=== PATIENT | male | born 1980 | race Caucasian/White ===

== ENCOUNTER 2023-05-10 07:22 | Emergency (ER) | payer MEDICAID, SELFPAY ==
[2023-05-10 07:24] VITALS: BP 138/90; PULSE 104; RESP 21; TEMP 36.6; O2SAT 86; BMI 28.3
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
--- NOTE | 2023-05-10 07:36 | NURSING ---
NO OLD EKGS
--- NOTE | 2023-05-10 07:37 | NURSING ---
CALLED [facility] FOR
--- NOTE | 2023-05-10 07:37 | NURSING ---
PATIENT GOING TO [facility] ACCEPTING
--- NOTE | 2023-05-10 07:41 | ED.RN ---
Patient has insulin pump. EMS blood sugar 200.
[2023-05-10 07:42] VITALS: BP 138/90; PULSE 95; RESP 22
--- NOTE | 2023-05-10 07:44 | ED.RN ---
Patient to CT. [facility] en route for transfer.
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
--- NOTE | 2023-05-10 07:44 | NURSING ---
0742 [facility] ETA IS 10 MIN
[2023-05-10 07:46] LABS: Absolute Lymphocyte Count 0.89 X10^3/uL (0.83-4.51); Absolute Neutrophil Count 14.3 X10^3/uL (2.0-7.7); Basophil# 0.05 X10^3/uL; Basophil% 0.3 % (0-1); Eosinophil# 0.01 X10^3/uL; Eosinophils% 0.1 % (0-5); Hemoglobin 14.6 g/dL (13.0-16.5); Lymphocyte # 0.89 X10^3/ul (0.83-4.51); Lymphocyte % 5.4 % (19-41); Mean Corp Hgb Conc 33.2 g/dL (32-36); Mean Corpuscular Hgb 28.7 pg (27.0-32.0); Mean Corpuscular Volume 86.6 fL (80-94); Mean Platelet Vol. 9.8 fl (6.2-12.0); Monocyte# 1.05 X10^3/uL; Monocyte% 6.4 % (0-10); NRBC Flagged by Analyzer 0 % (0-5); Neutrophil # 14.33 X10^3/uL (2.7-7.7); Neutrophil % 87.3 % (47-70); Platelet Count 275 K/mm3 (150-450); RBC Distribution Width CV 13.2 % (11.6-14.6); RBC Distribution Width SD 41.3 fl (35.1-43.9); Red Blood Count 5.08 M/mm3 (4.6-6.2); White Blood Count 16.4 K/mm3 (4.4-11.0)
[2023-05-10 08:00] LABS: Anion Gap 4 (5-15); BUN 14 mg/dL (7-18); BUN/Creat Ratio 13.2 RATIO (10-20); Calcium,Total 8.2 mg/dL (8.5-10.1); Chloride 110 mmol/L (98-107); Creatinine, Serum 1.06 mg/dL (0.70-1.30); EST Glomerular Filtration Rate 81 mL/min (>60); Est Glom Filt Rate - Afr Amer 98 mL/min (>60); Estimated Creatinine Clearance 99.64 ml/min; Glucose 293 mg/dL (74-106); International Normalized Ratio 1.1; Potassium 3.8 mmol/L (3.5-5.1); Prothrombin Time (Protime)PT. 13.8 SECONDS (11.7-14.9); Sodium Level 140 mmol/L (136-145)
[2023-05-10 08:01] VITALS: BP 142/74; PULSE 104; RESP 21; O2SAT 98
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
== END 2023-05-10 08:13 | disposition short-term general hospital (02) ==
LOC: ED 07:55
PROVIDERS: Emergency Provider Student in an Organized Health Care Education/Training Program; Visit Provider Student in an Organized Health Care Education/Training Program
DX: S12.200A Unspecified displaced fracture of third cervical vertebra, initial encounter for closed fracture (principal); F10.129 Alcohol abuse with intoxication, unspecified; E10.9 Type 1 diabetes mellitus without complications; V89.2XXA Person injured in unspecified motor-vehicle accident, traffic, initial encounter; S59.902A Unspecified injury of left elbow, initial encounter; D72.829 Elevated white blood cell count, unspecified; S01.112A Laceration without foreign body of left eyelid and periocular area, initial encounter; M21.922 Unspecified acquired deformity of left upper arm; Y90.8 Blood alcohol level of 240 mg/100 ml or more
CPT/HCPCS: 36415; 70450; 70486; 71260; 72125; 74177; 80048; 82077; 85025; 85610; 93005; 96360; 99285; Q9967; A4216